=== PATIENT | female | born 1990 | race African-American/Black ===

== ENCOUNTER 2016-10-23 13:31 | Emergency (ER) | payer OTHER ==
[~2016-10-23] VITALS: Ht 162.6 cm; Wt 68.0 kg
[~2016-10-23 13:31] MED LIST: FOLATE1 MG PO; PRENATAL VITAMI1 T10 PO
[2016-10-23 14:39] VITALS: BP 120/87
--- NOTE | 2016-10-23 15:21 | NUR ---
Dr. Feliciano evaluating patient at bedside.
--- NOTE | 2016-10-23 15:21 | NUR ---
Patient ambulated to bed 06.
[2016-10-23] MEDS ORDERED: NACL 0.9% 1,000 ML IV ONE (15:25)
[2016-10-23] MEDS ORDERED: KETOROLAC 30 MG/ML VIAL IVP ONE (15:25)
--- NOTE | 2016-10-23 15:40 | NUR ---
26/ c/o right lower abdominal pain since yesterday. Pt describes pain as sharp, constant, non radiating. Denies N/V/D. Denies fever or chills. Pt is AOX4, ambulatory with steady gait. VSS.
--- NOTE | 2016-10-23 15:57 | NUR ---
Patient going to Ultrasound via wheelchair per tech.
--- NOTE | 2016-10-23 16:23 | NUR ---
Pt returned from US. Pt reconnected to IV fluids. All needs met at this time. VSS.
--- NOTE | 2016-10-23 16:43 | NUR ---
Patient appears to be resting comfortably in bed. Vital Signs within normal limits. Respirations even and unlabored.
[2016-10-23] MEDS ORDERED: cefTRIAXone 1,000 MG VIAL ONE (17:35)
--- NOTE | 2016-10-23 18:12 | NUR ---
IV removed, catheter intact and site benign. Applied folded 4x4 gauze and tape to stop bleeding.
--- NOTE | 2016-10-23 18:15 | NUR ---
Patient discharged with v/s stable. Written and verbal after care instructions given and explained. Patient alert, oriented and verbalized understanding of instructions. Ambulatory with steady gait. All questions addressed prior to discharge. ID band removed. Patient advised to follow up with PMD. Rx of DOXYCYCLINE AND TRAMADOL given. Patient educated on indication of medication including possible reaction and side effects. Opportunity to ask questions provided and answered.
[2016-10-23 18:16] VITALS: BP 122/69
== END 2016-10-23 18:15 | disposition home or self-care (01) ==
LOC: MED 13:31
DX: R10.2 Pelvic and perineal pain (principal)
CPT/HCPCS: 36415; 76856; 80053; 81001; 81025; 82150; 83690; 85025; 85610; 85730; 96361; 96365; 96375; 99285; J0696; J1885; J7030